=== PATIENT | female | born 1970 | race Caucasian/White ===

== ENCOUNTER → 2024-04-18 10:16 | Outpatient (REF) | payer OTHER, SELFPAY | LOC: HWRAD 10:16 | PROVIDERS: ATTENDING PHYSICIAN Family Medicine | DX: D18.03 Hemangioma of intra-abdominal structures (principal); E04.1 Nontoxic single thyroid nodule; F17.210 Nicotine dependence, cigarettes, uncomplicated | CPT/HCPCS: 71271; 76536; 76700 ==